=== PATIENT | female | born 1985 | race Two or more races ===

== ENCOUNTER 2021-03-20 02:00 | Outpatient (CLI) | payer OTHER | END 2021-03-20 16:59 | disposition home or self-care (01) | LOC: OBS/DEL 02:00 → EDBD 02:00 → OBS/DEL 02:36 | PROVIDERS: ATTEND Obstetrics & Gynecology | DX: O26.843 Uterine size-date discrepancy, third trimester (principal); O24.313 Unspecified pre-existing diabetes mellitus in pregnancy, third trimester; O44.03 Complete placenta previa NOS or without hemorrhage, third trimester; Z3A.32 32 weeks gestation of pregnancy ==